=== PATIENT | female | born 1960 | race Caucasian/White ===

== ENCOUNTER 2019-09-22 17:29 | Emergency (ER) | payer OTHER ==
[2019-09-22] MEDS ORDERED: Sodium Chloride 0.9% 1,000 ML IV SCH (19:00)
[2019-09-22] MEDS ORDERED: cefTRIAXone 2 GM in Sodium Chloride 0.9% 50 ML IV ONE (19:01)
--- NOTE | 2019-09-22 19:09 | EDM.PDOC ---
ED HPI GENERAL MEDICAL PROBLEM - General Chief Complaint: Genitourinary Problem Stated Complaint: UTI Time Seen by Provider: 09/22/19 18:47 Source of Information: Reports: Patient History Limitations: Reports: No Limitations - History of Present Illness INITIAL COMMENTS - FREE TEXT/NARRATIVE: chief complaint: bladder infection This is a 59 year old female present to ER from Clinic. She was told she needed to have IV fluids, IV antibiotics, and ultrasound of kidneys. She reports she is here on vacation from [place] and has not been feeling well for 2 weeks. She had blood on tissue after voiding and pain in bladder after voiding. Past Medical History: Diabetes Type 1 >40 years with insulin pump. Onset: Gradual Duration: Week(s): (2 weeks) Location: Reports: Abdomen Quality: Reports: Ache (with urination) Severity: Moderate Improves with: Reports: None Worsens with: Reports: None Associated Symptoms: Reports: No Other Symptoms Pelvic Pain Score (Numeric/FACES): 3 - Related Data Allergies Allergy/AdvReac Type Severity Reaction Status Date / Time Sulfa (Sulfonamide Allergy Rash Verified 09/22/19 18:09 Antibiotics) Home Meds: Home Meds ARIPiprazole [Abilify] 1 mg PO BID 09/22/19 [History] Adalimumab [Humira Pen] 40 mg SQ ASDIRECTED 09/22/19 [History] Gabapentin [Neurontin] 300 mg PO BEDTIME 09/22/19 [History] Latanoprost/Pf [Latanoprost 0.005% Eye Drop] 1 drop OP BEDTIME 09/22/19 [History] Levothyroxine [Synthroid] 88 mcg PO ACBREAKFAST 09/22/19 [History] Novolog Pump ASDIRECTED 09/22/19 [History] Propranolol [Inderal LA 24 Hr] 60 mg PO BEDTIME 09/22/19 [History] Timolol [Betimol] 1 drop OP BID 09/22/19 [History] cloNIDine [Catapres] 0.1 mg PO BID 09/22/19 [History] rOPINIRole [Requip] 0.5 mg PO BEDTIME 09/22/19 [History] valACYclovir HCl [Valtrex] 500 mg PO DAILY 09/22/19 [History] Past Medical History HEENT History: Reports: None, Allergic Rhinitis, Glaucoma Cardiovascular History: Reports: Hypertension Respiratory History: Reports: Sleep Apnea Gastrointestinal History: Reports: None Genitourinary History: Reports: None [employer] History: Reports: Musculoskeletal History: Reports: RA Neurological History: Reports: None Psychiatric History: Reports: Bipolar Endocrine/Metabolic History: Reports: Diabetes, Type I, Hypothyroidism Hematologic History: Reports: None Immunologic History: Reports: None Oncologic (Cancer) History: Reports: None Dermatologic History: Reports: None - Past Surgical History GI Surgical History: Reports: Cholecystectomy Female Surgical History: Reports: Section Social & Family History - Tobacco Use Smoking Status *Q: Never Smoker - Caffeine Use Caffeine Use: Reports: None - Recreational Drug Use Recreational Drug Use: No - Living Situation & Occupation Living situation: Reports: Occupation: Retired (lives in [place], plans to relocated to [place]. her Adult children live in [place], [place].) ED ROS GENERAL - Review of Systems Review Of Systems: See Below Constitutional: Reports: Other (painful urination x 2 weeks. denies fever, chills or back pain.) HEENT: Reports: No Symptoms Respiratory: Reports: No Symptoms Cardiovascular: Reports: No Symptoms Endocrine: Reports: Fatigue, Other (Diabete type 1 with insulin pump) GI/Abdominal: Reports: Abdominal Pain (dysuria) : Reports: Dysuria, Frequency, Hematuria, Urgency, Urinary Retention Musculoskeletal: Reports: No Symptoms Skin: Reports: No Symptoms Neurological: Reports: No Symptoms Psychiatric: Reports: No Symptoms Hematologic/Lymphatic: Reports: No Symptoms Immunologic: Reports: No Symptoms ED EXAM, GI/ABD - Physical Exam Exam: See Below Exam Limited By: No Limitations General Appearance: Alert, WD/WN, No Apparent Distress, Other (pleasant, neat and well groomed. no distress) Eyes: Bilateral: Normal Appearance Head: Atraumatic, Normocephalic Neck: Normal Inspection, Supple, Non-Tender Respiratory/Chest: No Respiratory Distress, Lungs Clear, Normal Breath Sounds, No Accessory Muscle Use, Chest Non-Tender Cardiovascular: Regular Rate, Rhythm, No Murmur GI/Abdominal Exam: Normal Bowel Sounds, Soft, Other (local pelvic pain with palpation. no rebound no guarding) (Female) Exam: Deferred Rectal (Female) Exam: Deferred Back Exam: Normal Inspection, Full Range of Motion Extremities: Normal Inspection, Normal Range of Motion, Non-Tender, No Pedal Edema, Normal Capillary Refill Neurological: Alert, Oriented, CN II-XII Intact, Normal Cognition, Normal Gait, Normal Reflexes, No Motor/Sensory Deficits Psychiatric: Normal Affect, Normal Mood Skin Exam: Warm, Dry, Intact, Normal Color, No Rash Lymphatic: No Adenopathy Course - Vital Signs Last Recorded V/S: Last Vital Signs Temp 36.3 C 09/22/19 18:06 Pulse 60 09/22/19 18:06 Resp 18 09/22/19 18:06 BP 181/76 H 09/22/19 18:06 Pulse Ox 100 09/22/19 18:06 - Orders/Labs/Meds Orders: Active Orders 24 hr Category Date Time Status CULTURE URINE [RM] Stat Lab 09/22/19 20:19 Ordered UA W/MICROSCOPIC [URIN] Urgent Lab 09/22/19 20:19 Ordered Sodium Chloride 0.9% [Normal Saline] 1,000 ml Med 09/22/19 19:00 Active IV ASDIRECTED Medication Orders Sodium Chloride (Normal Saline) 1,000 mls @ 999 mls/hr IV ASDIRECTED MARY Last Admin: 09/22/19 19:29 Dose: 999 mls/hr Documented by: BARRON Meds: Medications Generic Name Dose Route Start Last Admin Trade Name Freq PRN Reason Stop Dose Admin Sodium Chloride 1,000 mls @ 999 mls/hr 09/22/19 19:00 09/22/19 19:29 Normal Saline IV 999 mls/hr ASDIRECTED MARY Administration Discontinued Medications Generic Name Dose Route Start Last Admin Trade Name Freq PRN Reason Stop Dose Admin Ceftriaxone Sodium 2 gm/ 50 mls @ 100 mls/hr 09/22/19 19:01 09/22/19 20:21 Sodium Chloride IV 09/22/19 19:30 100 mls/hr ONETIME ONE Administration - Re-Assessments/Exams Free Text/Narrative Re-Assessment/Exam: 09/22/19 19:11 labs- will repeat Urine with micro, order urine culture will need labs from previous clinic visit today Imaging- kidney stone protocol Meds- IV fluids Normal Saline 999ml/hr., Rocephin 2 gram IV once Ms. Donato agrees with plan of care. 09/22/19 19:17 Labs from [facility] Cr. 1.23 glucose 146 Potassium 4.0 BUN 27 WBC 6.2 gfr 44 Na+ 142 Chloride 103 Co2 30 Calcium 10.1 Anion gap 9.0 will await urine results and CT scan results. 09/22/19 20:13 CT scan of kidney stone protocol is negative except for enlarge uterus and cystitis reviewed report with Ms. Donato and her S.O. will discharge to home after IV fluids and medications discharge medication Keflex 500mg po bid x 10 days advised to follow up in Primary Care for enlarge uterus. Return to ER for any worsens of symptoms. Departure - Departure Time of Disposition: 20:46 Disposition: Home, Self-Care 01 Condition: Good Clinical Impression: UTI, Urinary tract infectious disease - Discharge Information *PRESCRIPTION DRUG MONITORING PROGRAM REVIEWED*: Not Applicable *COPY OF PRESCRIPTION DRUG MONITORING REPORT IN PATIENT BRITTA: Not Applicable Instructions: Urinary Tract Infection, Adult, [id number] Referrals: PCP,None [Primary Care Provider] - Forms: ED Department Discharge Care Plan Goals: Urinary Tract Infection -Antibiotic take as directed -Keflex 500 mg po bid x 10 days -urine culture pending -follow up with Primary Care Provider for recheck in 10 days -return to ER for any changes or worsen of symptoms- fever, chills, nausea, vomiting, rash or worsen pain. Sepsis Event Note (ED) - Evaluation Sepsis Screening Result: No Definite Risk - Focused Exam Vital Signs: Vital Signs Temp Pulse Resp BP Pulse Ox 09/22/19 18:06 36.3 C 60 18 181/76 H 100 - Problem List & Annotations (1) UTI, Urinary tract infectious disease SNOMED Code(s): 62473099 Code(s): N39.0 - URINARY TRACT INFECTION, SITE NOT SPECIFIED Status: Acute Priority: High Current Visit: Yes - Problem List Review Problem List Initiated/Reviewed/Updated: Yes - My Orders Last 24 Hours: My Active Orders 09/22/19 19:00 Sodium Chloride 0.9% [Normal Saline] 1,000 ml IV ASDIRECTED 09/22/19 20:19 CULTURE URINE [RM] Stat UA W/MICROSCOPIC [URIN] Urgent - Assessment/Plan Last 24 Hours: My Active Orders 09/22/19 19:00 Sodium Chloride 0.9% [Normal Saline] 1,000 ml IV ASDIRECTED 09/22/19 20:19 CULTURE URINE [RM] Stat UA W/MICROSCOPIC [URIN] Urgent Plan: Urinary Tract Infection -Antibiotic take as directed -Keflex 500 mg po bid x 10 days -urine culture pending -follow up with Primary Care Provider for recheck in 10 days -return to ER for any changes or worsen of symptoms- fever, chills, nausea, vomiting, rash or worsen pain.
--- NOTE | 2019-09-22 19:42 | CRLCT ---
INDICATION: Hematuria, difficulty urinating TECHNIQUE: CT abdomen and pelvis without contrast. COMPARISON: None FINDINGS: Lower chest: Unremarkable. Liver: Unremarkable. Spleen: Unremarkable. Pancreas: Unremarkable. Gallbladder and bile ducts: S/p cholecystectomy. Adrenal glands: Unremarkable. Kidneys: Unremarkable. No kidney or ureteral stones and no hydronephrosis. GI tract: Unremarkable. Vascular structures: Unremarkable. Lymph nodes: Unremarkable. Miscellaneous: Small fat containing umbilical hernia. No free air or significant free fluid. Pelvic Organs: Mild fat stranding around the urinary bladder. Enlarged, mildly lobular uterus. The endometrial stripe measures 7 mm in width. Bones: Unremarkable for age. IMPRESSION: No urinary tract stone or hydronephrosis. Minimal fat stranding around the urinary bladder could represent cystitis. Correlate with urinalysis. Enlarged, mildly lobular uterus. The endometrial stripe appears abnormally thickened. Recommend nonemergent pelvic ultrasound for further characterization. Status post cholecystectomy. Please note that all CT scans at this facility use dose modulation, iterative reconstruction, and/or weight-based dosing when appropriate to reduce radiation dose to as low as reasonably achievable. Dictated by Claudia Rodriguez MD @ Sep 22 2019 7:26PM Signed by Dr. Claudia Rodriguez @ Sep 22 2019 7:40PM
== END 2019-09-22 21:01 | disposition home or self-care (01) ==
LOC: JP.ED 17:29
DX: N39.0 Urinary tract infection, site not specified (principal); I10 Essential (primary) hypertension; E10.9 Type 1 diabetes mellitus without complications; E03.9 Hypothyroidism, unspecified; Z88.2 Allergy status to sulfonamides; Z79.899 Other long term (current) drug therapy; Z90.49 Acquired absence of other specified parts of digestive tract; Z98.890 Other specified postprocedural states
CPT/HCPCS: 74176; 81001; 87086; 87088; 87186; 96365; 99284; J0696; J7030; J7050

== ENCOUNTER 2024-01-08 06:12 | Day surgery (SDC) | payer MEDICARE ==
[2024-01-08] MEDS: Dextrose 5%-Lactated Ringers 1,000 ML IV SCH (06:37)
[2024-01-08] MEDS ORDERED: fentaNYL 50 MCG/ML SDV ONE (07:09)
[2024-01-08] MEDS ORDERED: Midazolam 1 MG/ML 2 ML SDV ONE (07:09)
[2024-01-08] MEDS ORDERED: Propofol 200 MG/20 ML SDV ONE (07:09)
== END 2024-01-08 09:15 | disposition home or self-care (01) ==
LOC: JP.SDS 06:12
PROVIDERS: ATTEND Family Medicine
DX: K29.50 Unspecified chronic gastritis without bleeding (principal); K31.A0 Gastric intestinal metaplasia, unspecified; I10 Essential (primary) hypertension; E78.5 Hyperlipidemia, unspecified; E11.9 Type 2 diabetes mellitus without complications
CPT/HCPCS: 00813-QZ; 43239; 45378; 88305; 88342; J2250; J2704; J3010; J7121

== ENCOUNTER 2024-12-27 10:12 | Emergency (ER) | payer MEDICARE | END 2024-12-27 12:31 | disposition home or self-care (01) | LOC: JP.ED 10:12 | DX: I10 Essential (primary) hypertension (principal); E78.00 Pure hypercholesterolemia, unspecified; K21.9 Gastro-esophageal reflux disease without esophagitis; E10.9 Type 1 diabetes mellitus without complications; E03.9 Hypothyroidism, unspecified; Z88.2 Allergy status to sulfonamides; Z79.899 Other long term (current) drug therapy; Z79.82 Long term (current) use of aspirin; Z79.890 Hormone replacement therapy; Z86.16 Personal history of COVID-19 | CPT/HCPCS: 99284 ==